=== PATIENT | female | born 2000 | race Caucasian/White ===

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

== ENCOUNTER 2020-04-21 10:48 | Emergency (ER) | payer BC ==
--- OUTSIDE RECORDS SUMMARY | 2020-04-21 10:50 | XMS REPORT | Continuity of Care Document ---
:2000 Author Organization [facility] t Address [address] [place] [address] Dr. Hutchins. [address] [place] [id number] Care Team Providers Name Role Phone Fredo Camacho MD Attending Clinician Problems This patient has no known problems. Allergies, Adverse Reactions, Alerts This patient has no known allergies or adverse reactions. Medications This patient has no known medications. Procedures This patient has no known procedures. Encounters Start End Encounter Admission Attending Care Care Encounter Source Date/Time Date/Time Type Type Clinicians Facility Department ID 2019-05-27 2019-05-27 Office CAROLIN Camacho [id number] 11:00:00 11:15:00 Visit [facility] [id number] Fredo Carrero [id number] [place] [id number] nal 044 Office [address] One Results This patient has no known results.
[2020-04-21] MEDS ORDERED: ACETAMINOPHEN 500 MG TAB ONE (11:18)
--- NOTE | 2020-04-21 12:17 | RAD REPORT ---
EXAM DESCRIPTION: RAD - Foot Left 3 View - 04/21/2020 11:25 am CLINICAL HISTORY: PAIN COMPARISON: <Comparisons> FINDINGS: No fracture, dislocation or periosteal reaction. No acute or destructive bony process. No air or foreign body in the soft tissues. Distal fibula findings are separately detailed. IMPRESSION: Negative left foot examination.
--- NOTE | 2020-04-21 12:19 | RAD REPORT ---
EXAM DESCRIPTION: RAD - Ankle Left 3 View - 04/21/2020 11:24 am CLINICAL HISTORY: PAIN COMPARISON: None FINDINGS: Oblique fracture is present through the distal fibula. No angulation deformity and no sign ificant distraction. Tibia is intact. Ankle mortise is normal. No joint effusion seen. No joint space narrowing. Significant lateral soft tissue swelling is present. IMPRESSION: Nondisplaced distal fibula fracture with lateral soft tissue swelling.
--- NOTE | 2020-04-21 12:28 | EDPHYS ---
Physician Documentation [facility] Name: Jhon Ackerman Age: 20 yrs Sex: Female : 2000 Arrival Date: 04/21/2020 Time: 10:50 Bed 18 Private MD: Fernie Camacho ED Physician Nathan Farnsworth HPI: 04/21 11:03 This 20 yrs old Female presents to ER via Wheelchair with complaints of Ankle jmm Injury, Ankle Pain. 11:03 The patient presents with an injury, pain. Onset: The symptoms/episode began/occurred jmm acutely, just prior to arrival. Associated signs and symptoms: Pertinent positives: swelling. Modifying factors: The symptoms are alleviated by nothing, the symptoms are aggravated by weight bearing, movement. The patient has not experienced similar symptoms in the past. This is a 20 year old female with a history of anxiety, depression that presents to the ED with complaints of left ankle swelling which occurred as she slipped off the side of a truck. Patient states she was leaning against a truck and slipped. Denies neck pain. 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 - Social history:: Smoking status: Reported history of juuling and/or vaping. ROS: 11:03 Constitutional: Negative for fever, chills, and weight loss, Cardiovascular: Negative jmm for chest pain, palpitations, and edema, Respiratory: Negative for shortness of breath, cough, wheezing, and pleuritic chest pain. 11:03 MS/extremity: Positive for swelling. 11:03 All other systems are negative. Exam: 11:03 Constitutional: This is a well developed, well nourished patient who is awake, alert, jmm and in no acute distress. Head/Face: atraumatic. Eyes: EOMI, no conjunctival erythema appreciated ENT: Moist Mucus Membranes Neck: Trachea midline, Supple Chest/axilla: Normal chest wall appearance and motion. Cardiovascular: Regular rate and rhythm. No edema appreciated Respiratory: Normal respirations, no respiratory distress appreciated Abdomen/GI: Non distended, soft Back: Normal ROM Skin: General appearance color normal 11:03 Musculoskeletal/extremity: swelling noted to the left lateral ankle, compartments are soft, diffusely ttp, full dorsalis pulse, NVI. 11:03 Skin: Appearance: Color: normal in color. 11:03 Neuro: Orientation: is normal, Mentation: is normal, Memory: is normal. Vital Signs: 10:56 Weight 64.41 kg; Height 5 ft. 7 in. (170.18 cm); Pain 10/10; iw 10:58 BP 113 / 74; Pulse 97; Resp 16 S; Temp 97.8(TE); Pulse Ox 97% on R/A; jd3 12:01 BP 95 / 53; Pulse 92; Resp 16 S; Pulse Ox 97% on R/A; jd3 10:56 Body Mass Index 22.24 (64.41 kg, 170.18 cm) iw MDM: 11:00 Patient medically screened. [facility] 12:26 Data reviewed: vital signs, nurses notes. Counseling: I had a detailed discussion with [facility] the patient and/or guardian regarding: the historical points, exam findings, and any diagnostic results supporting the discharge/admit diagnosis, radiology results, the need for outpatient follow up. ED course: I discussed with the patient the need to F/U with ortho for further evaluation. Patient is otherwise given compartment syndrome return precautions. Patient understood and agrees with the plan of care. . 04/21 11:00 Order name: Ankle Left 3 View XRAY; Complete Time: 12:20 [facility] 04/21 11:00 Order name: Foot Left 3 View XRAY; Complete Time: 12:20 [facility] 04/21 11:24 Order name: Misc. Order: Left Ortho Boot; Complete Time: 11:42 [facility] Administered Medications: 11:04 Drug: Tylenol 1000 mg Route: PO; d3 11:42 Follow up: Response: No adverse reaction [facility] Disposition: 13:37 Co-signature as Attending Physician, Nathan Farnsworth MD. rn Disposition: 04/21/20 12:28 Discharged to Home. Impression: Fracture of lower leg, including ankle. - Condition is Stable. - Discharge Instructions: Ankle Fracture. - Medication Reconciliation Form, Thank You Letter, Antibiotic Education, Prescription Opioid Use, Work release form form. - Follow up: Neal Austin MD; When: 2 - 3 days; Reason: Recheck today's complaints, Continuance of care, Re-evaluation by your physician. Signatures: Dispatcher [employer] Redd Putnam PA PA jmm Williams, Irene, RN RN iw Nieto, Roman, MD MD rn Davies, Jonathon, RN RN jd3 Corrections: (The following items were deleted from the chart) 12:43 12:28 04/21/2020 12:28 Discharged to Home. Impression: Fracture of lower leg, including jd3 ankle. Condition is Stable. Forms are Medication Reconciliation Form, Thank You Letter, Antibiotic Education, Prescription Opioid Use. Follow up: Neal Austin; When: 2 - 3 days; Reason: Recheck today's complaints, Continuance of care, Re-evaluation by your physician. [facility]
--- NOTE | 2020-04-21 12:28 | ER ---
Nurse's Notes [facility] Name: Jhon Ackerman Age: 20 yrs Sex: Female : 2000 Arrival Date: 04/21/2020 Time: 10:50 Bed 18 Private MD: Fernie Camacho Diagnosis: Fracture of lower leg, including ankle Presentation: 04/21 10:56 Chief complaint: Patient states: was drinking last night, somehow injured her left iw ankle, woke up and it was swollen and very painful, 12/23. Coronavirus screen: At this time, the client does not indicate any symptoms associated with coronavirus-19. Ebola Screen: Patient negative for fever greater than or equal to 101.5 degrees Fahrenheit, and additional compatible Ebola Virus Disease symptoms Patient denies exposure to infectious person. Patient denies travel to an Ebola-affected area in the 21 days before illness onset. No symptoms or risks identified at this time. Initial Sepsis Screen: Does the patient meet any 2 criteria? No. Patient's initial sepsis screen is negative. Does the patient have a suspected source of infection? No. Patient's initial sepsis screen is negative. Risk Assessment: Do you want to hurt yourself or someone else? Patient reports no desire to harm self or others. Onset of symptoms was April 20, 2020. 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 - Social history:: Smoking status: Reported history of juuling and/or vaping. Screenin:58 Abuse screen: Denies threats or abuse. Nutritional screening: No deficits noted. jd3 Tuberculosis screening: No symptoms or risk factors identified. Fall Risk Ambulatory Aid- None/Bed Rest/Nurse Assist (0 pts). Gait- Normal/Bed Rest/Wheelchair (0 pts) Mental Status- Oriented to own ability (0 pts). Total Camilo Fall Scale indicates No Risk (0-24 pts). Assessment: 10:57 General: Appears in no apparent distress. uncomfortable, Behavior is calm, cooperative, jd3 appropriate for age. Pain: Complains of pain in left ankle Quality of pain is described as aching, tender. Neuro: Level of Consciousness is awake, alert, obeys commands, Oriented to person, place, time, situation. Cardiovascular: Capillary refill < 3 seconds Patient's skin is warm and dry. Respiratory: Airway is patent Respiratory effort is even, unlabored, Respiratory pattern is regular, symmetrical, Denies cough, shortness of breath. GI: No signs and/or symptoms were reported involving the gastrointestinal system. : No signs and/or symptoms were reported regarding the genitourinary system. EENT: No signs and/or symptoms were reported regarding the EENT system. Derm: Skin is intact, Skin is dry, Skin is normal, Skin temperature is warm. Musculoskeletal: Circulation, motion, and sensation intact. Range of motion: limited in left ankle Swelling present in left ankle. 12:01 Reassessment: Patient appears in no apparent distress at this time. Patient and/or jd3 family updated on plan of care and expected duration. Pain level reassessed. Patient is alert, oriented x 3, equal unlabored respirations, skin warm/dry/pink. 12:42 Reassessment: Patient appears in no apparent distress at this time. Patient and/or jd3 family updated on plan of care and expected duration. Pain level reassessed. Patient is alert, oriented x 3, equal unlabored respirations, skin warm/dry/pink. pt reported understanding of discharge instructions, assisted pt to front of ER. insisting on waiting outside, proper crutch walking demonstrated. Vital Signs: 10:56 Weight 64.41 kg; Height 5 ft. 7 in. (170.18 cm); Pain 10/10; iw 10:58 BP 113 / 74; Pulse 97; Resp 16 S; Temp 97.8(TE); Pulse Ox 97% on R/A; jd3 12:01 BP 95 / 53; Pulse 92; Resp 16 S; Pulse Ox 97% on R/A; jd3 10:56 Body Mass Index 22.24 (64.41 kg, 170.18 cm) iw ED Course: 10:50 Patient arrived in ED. ag5 10:50 Fernie Camacho MD is Private Physician. ag5 10:52 Kranthi Mary, RN is Primary Nurse. jd3 10:53 Redd Kearney PA is PHCP. jmm 10:53 Nathan Farnsworth MD is Attending Physician. [facility] 10:57 Triage completed. iw 10:58 Arm band placed on. iw 10:59 Patient has correct armband on for positive identification. Bed in low position. Call j light in reach. Side rails up X 1. Pulse ox on. NIBP on. 10:59 Ice pack to injury. jd3 11:25 Ankle Left 3 View XRAY In Process Unspecified. EDMS 11:25 Foot Left 3 View XRAY In Process Unspecified. EDMS 11:42 ortho boot to left foot. jd3 12:27 Neal Austin MD is Referral Physician. [facility] 12:41 No provider procedures requiring assistance completed. Patient did not have IV access jd3 during this emergency room visit. Administered Medications: 11:04 Drug: Tylenol 1000 mg Route: PO; jd3 11:42 Follow up: Response: No adverse reaction jd3 Outcome: 12:28 Discharge ordered by MD. jmm 12:43 Discharged to home ambulatory, with family. jd3 12:43 Condition: stable 12:43 Discharge instructions given to patient, Instructed on discharge instructions, follow up and referral plans. Demonstrated understanding of instructions, follow-up care. 12:43 Patient left the ED. jd3 Signatures: Dispatcher [employer] EDMS Redd Kearney PA PA jmm Williams, Irene, RN RN iw Kranthi Mary RN RN jMonisha Curtis ag5
[2020-04-21 13:05] VITALS: TEMP 97.8; O2SAT 97
[2020-04-21 13:07] VITALS: BP 95/53
== END 2020-04-21 12:43 | disposition home or self-care (01) ==
LOC: ER 10:48
PROC: 2W3MX1Z Immobilization of Left Lower Extremity using Splint (ICD-10-PCS; principal; 2020-04-21)
DX: S82.832A Other fracture of upper and lower end of left fibula, initial encounter for closed fracture (principal); W01.0XXA Fall on same level from slipping, tripping and stumbling without subsequent striking against object, initial encounter; Y93.89 Activity, other specified; Y92.9 Unspecified place or not applicable; Z88.5 Allergy status to narcotic agent
CPT/HCPCS: 99284

== ENCOUNTER 2022-05-12 14:59 | Emergency (ER) | payer BC ==
--- OUTSIDE RECORDS SUMMARY | 2022-05-12 15:54 | XMS REPORT | Continuity of Care Document ---
:2000 Author Organization [facility] Address [address] [place] [address] [place] [id number] Care Team Providers Name Role Phone Doctor Unassigned, [place] Attending Clinician Unavailable JAYLEEN MUJICA Attending Clinician Unavailable CONSTANCE RETANA Attending Clinician Unavailable Liza DUNLAP, [place] Yoo Attending Clinician SHIN DE JESUS Attending Clinician Unavailable Payers Payer Name Policy Type Policy Number Effective Date Expiration Date S ource Problems Condition Condition Condition Status Onset Resolution Last Treating Co mments Source Name Details Category Date Date Treatment Clinician Date No known No known Disease Unive rs active active ity of problems problems [facility] Allergies, Adverse Reactions, Alerts Allergy Allergy Status Severity Reaction(s) Onset Inactive Treating Comm ents Source Name Type Date Date Clinician Morphine Propensi Active Shortness of 2017-03 Univers ty to Breath 1-14 ity of adverse 00:00: [place] reaction [address] [place] [address] MORPHINE DRUG Active SOB 2017-03 Univers INGREDI 1-14 ity of 00:00: [address] Social History Social Habit Start Date Stop Date Quantity Comments [facility] Alcohol intake 2019-06-22 2019-06-22 Current [facility] 00:00:00 00:00:00 non-drinker of [facility] alcohol [place] (finding) Tobacco use and 2019-06-22 2019-06-22 Never used [facility] y of exposure 00:00:00 00:00:00 [facility] Smoking Status Start Date Stop Date Source Never smoker [facility] Medications Ordered Filled Start Stop Current Ordering Indication Dosage Frequency Signature Comments Components Source Medication Medication Date Date Medication? Clinician (SIG) Name Name medroxyPROG Yes 150mg 150 mg by [facility] ESTERone 3-13 Intramuscu ity o f 150 mg/mL 16:17: lar route Adriano as syringe 51 every 3 Medical (three) Branch months. medroxyPROG 2020-0 Yes 150mg 150 mg by Univers ESTERone 3-13 Intramuscu ity o f 150 mg/mL 16:17: lar route Adriano as syringe 51 every 3 Medical (three) Branch months. medroxyPROG 2020-0 Yes 150mg 150 mg by Univers ESTERone 3-13 Intramuscu ity o f 150 mg/mL 16:17: lar route Adriano as syringe 51 every 3 Medical (three) Branch months. escitalopra 0 Yes [id number] 5mg Take 1 Univers m oxalate 5 3-13 tablet by ity of mg tablet 00:00: mouth [place] 00 daily. Medical Branch escitalopra Yes [id number] 5mg Take 1 Univers m oxalate 5 3-13 tablet by ity of mg tablet 00:00: mouth [place] 00 daily. Medical Branch escitalopra Yes [id number] 5mg Take 1 Univers m oxalate 5 3-13 tablet by ity of mg tablet 00:00: mouth [place] 00 daily. Medical Branch ESCITALOPRA Yes [id number] 10mg TAKE 1 Univers M OXALATE 2-28 TABLET BY ity o f 10 mg 00:00: MOUTH [place] tablet 00 DAILY Medical Branch ESCITALOPRA 0 Yes [id number] 10mg TAKE 1 Univers M OXALATE 2-28 TABLET BY ity o f 10 mg 00:00: MOUTH [place] tablet 00 DAILY Medical Branch ESCITALOPRA 0 Yes [id number] 10mg TAKE 1 Univers M OXALATE 2-28 TABLET BY ity o f 10 mg 00:00: MOUTH [place] tablet 00 DAILY Medical Branch ESCITALOPRA 2019-0 2020- No [id number] 10mg TAKE 1 Univers M OXALATE 2-28 03-13 TABLET BY ity of 10 mg 00:00: 00:00 MOUTH [place] tablet 00 :00 DAILY Medical Branch ESCITALOPRA 0 2020- No [id number] 10mg TAKE 1 Univers M OXALATE 2-28 03-13 TABLET BY ity of 10 mg 00:00: 00:00 MOUTH [place] tablet 00 :00 DAILY Medical Branch Nitrofurant Yes [id number] 100mg Take 1 Univers oin&Nit. 7-26 capsule by ity o f [place] 00:[place]: mouth [place] 100 mg 00 (two) Medical capsule times Branch daily. Nitrofurant Yes [id number] 100mg Take 1 Univers oin&Nit. 7-26 capsule by ity o f [place] 00:[place]: mouth [place] 100 mg 00 (two) Medical capsule times Branch daily. Nitrofurant Yes [id number] 100mg Take 1 Univers oin&Nit. 7-26 capsule by ity o f [place] 00:[place]: mouth [place] 100 mg 00 (two) Medical capsule times Branch daily. Nitrofurant Yes [id number] 100mg Take 1 Univers oin&Nit. 7-26 capsule by ity o f [place] 00:[place]: [place] 100 mg 00 (two) Medical capsule times Branch daily. Nitrofurant Yes [id number] 100mg Take 1 Univers oin&Nit. 7-26 capsule by ity o f [place] 00:[place]: mouth [place] 100 mg 00 (two) Medical capsule times Branch daily. Nitrofurant Yes [id number] 100mg Take 1 Univers oin&Nit. 7-26 capsule by ity o f [place] 00:00: mouth [place] 100 mg 00 (two) Medical capsule times Branch daily. Nitrofurant Yes [id number] 100mg Take 1 Univers oin&Nit. 7-26 capsule by ity o f [place] 00:[place]: mouth [place] 100 mg 00 (two) Medical capsule times Branch daily. Nitrofurant 2020- No [id number] 100mg Take 1 Univers oin&Nit. 7-26 03-13 capsule by ity of [place] 00:00: 00:00 mouth 2 [place] as 100 mg 00 :00 (two) Medical capsule times Branch daily. Nitrofurant 2020- No [id number] 100mg Take 1 Univers oin&Nit. 7-26 03-13 capsule by ity of [place] 00:00: 00:00 mouth 2 [place] as 100 mg 00 :00 (two) Medical capsule times Branch daily. cephALEXin 2018- Yes [id number] 500mg Take 1 Univers 500 mg 7-24 capsule by ity of capsule 00:00: mouth 2 [place] 00 (two) Medical times Branch daily. cephALEXin 2018-0 Yes [id number] 500mg Take 1 Univers 500 mg 7-24 capsule by ity of capsule 00:00: mouth 2 [place] 00 (two) Medical times Branch daily. cephALEXin 2019-0 Yes [id number] 500mg Take 1 Univers 500 mg 7-24 capsule by ity of capsule 00:00: mouth 2 [place] 00 (two) Medical times Branch daily. cephALEXin 2019-0 Yes [id number] 500mg Take 1 Univers 500 mg 7-24 capsule by ity of capsule 00:00: mouth 2 [place] 00 (two) Medical times Branch daily. cephALEXin 2019- Yes [id number] 500mg Take 1 Univers 500 mg 7-24 capsule by ity of capsule 00:00: mouth 2 [place] 00 (two) Medical times Branch daily. cephALEXin 2019-0 Yes [id number] 500mg Take 1 Univers 500 mg 7-24 capsule by ity of capsule 00:00: mouth 2 [place] 00 (two) Medical times Branch daily. cephALEXin 2018- Yes [id number] 500mg Take 1 Univers 500 mg 7-24 capsule by ity of capsule 00:00: mouth 2 [place] 00 (two) Medical times Branch daily. cephALEXin 2020- No [id number] 500mg Take 1 Univers 500 mg 7-24 03-13 capsule by ity of capsule 00:00: 00:00 mouth 2 [place] 00 :00 (two) Medical times Branch daily. cephALEXin 2018-0 2020- No [id number] 500mg Take 1 Univers 500 mg 7-24 03-13 capsule by ity of capsule 00:00: 00:00 mouth 2 [place] 00 :00 (two) Medical times Branch daily. escitalopra Yes [id number] 10mg Take 1 Univers m oxalate 2-06 tablet by ity o f 10 mg 00:00: mouth [place] tablet 00 daily. Medical Branch escitalopra Yes [id number] 10mg Take 1 Univers m oxalate 2-06 tablet by ity o f 10 mg 00:00: mouth [place] tablet 00 daily. Medical Branch escitalopra Yes [id number] 10mg Take 1 Univers m oxalate 2-06 tablet by ity o f 10 mg 00:00: mouth [place] tablet 00 daily. Medical Branch escitalopra Yes [id number] 10mg Take 1 Univers m oxalate 2-06 tablet by ity o f 10 mg 00:00: mouth [place] tablet 00 daily. [facility] escitalopra 2020- No [id number] 10mg Take 1 Univers m oxalate 04-21 tablet by ity of 10 mg 00:00: 00:00 mouth [place] tablet 00 :00 daily. [facility] Immunizations Ordered Filled Immunization Date Status Comments [facility] e Immunization Name Name Td 2018-07-31 Completed University of 00:00:00 [facility] Tdap 2018-07-31 Completed University of 00:00:00 [facility] Tdap 2018-07-31 Completed University of 00:00:00 [facility] Tdap 2018-07-31 Completed University of 00:00:00 [facility] Tdap 2018-07-31 Completed University of 00:00:00 [facility] Tdap 2018-07-31 Completed University of 00:00:00 [facility] Tdap 2018-07-31 Completed University of 00:00:00 [facility] Tdap 2018-07-31 Completed University of 00:00:00 [facility] Tdap 2018-07-31 Completed University of 00:00:00 [facility] TDAP 2018-07-31 Completed University of 00:00:00 [facility] Influenza Virus 2016-12-15 Completed Universit y of Vaccine Quad IM 3+ 00:00:[address] [facility] Influenza Virus 2016-12-15 Completed Universit y of Vaccine [place] IM 3+ 00:00:[address] [facility] Influenza Virus 2016-12-15 Completed Universit y of Vaccine Quad IM 3+ 00:00:[address] [facility] Influenza Virus 2016-12-15 Completed Universit y of Vaccine Quad IM 3+ 00:00:[address] [facility] Influenza Virus 2016-12-15 Completed Universit y of Vaccine Quad IM 3+ 00:00:[address] [facility] Influenza Virus 2016-12-15 Completed Universit y of Vaccine Quad IM 3+ 00:00:[address] [facility] Influenza Virus 2016-12-15 Completed Universit y of Vaccine Quad IM 3+ 00:00:[address] [facility] Influenza Virus 2016-12-15 Completed Universit y of Vaccine Quad IM 3+ 00:00:[address] [facility] Influenza Virus 2016-12-15 Completed Universit y of Vaccine Quad IM 3+ 00:00:[address] [facility] Influenza Virus 2016-12-15 Completed Universit y of Vaccine Quad IM 3+ 00:00:00 [facility] Branch Vital Signs Vital Name Observation Time Observation Value Comments Source Systolic blood 2019-05-27 16:08:00 110 mm[Hg] Univer sity of pressure [place] [facility] Diastolic blood 2019-05-27 16:08:00 76 mm[Hg] Unive rsity of pressure [place] [facility] Heart rate 2019-05-27 16:08:00 87 /min Universi ty of [place] [facility] Body temperature 2019-05-27 16:08:00 36.56 Joy Univ ersity of [place] [facility] Body weight 2019-05-27 16:08:00 65.862 kg Universi ty of [place] [facility] Oxygen saturation in 2019-05-27 16:08:00 98 /min University of Arterial blood by [facility] Pulse oximetry Branch Systolic blood 2019-05-27 16:08:00 110 mm[Hg] Univer sity of pressure [place] [facility] [place] Diastolic blood 2019-05-27 16:08:00 76 mm[Hg] Unive rsity of pressure [facility] Heart rate 2019-05-27 16:08:00 87 /min Universi ty of [place] [facility] Body temperature 2019-05-27 16:08:00 36.56 Joy Univ ersity of [place] [facility] Body weight 2019-05-27 16:08:00 65.862 kg Universi ty of [place] [facility] Oxygen saturation in 2019-05-27 16:08:00 98 /min University of Arterial blood by [facility] Pulse oximetry Branch Procedures Procedure Date / Time Performed Performing Clinician [facility] e EXTERNAL PROVIDER 2020-04-25 06:01:00 Doctor Unassigned, No Univ ersity of [place] RECORDS Name Medical Branch ASSIGNMENT OF BENEFITS 2019-05-27 16:00:48 Doctor Unassigned, No University [facility] Name Medical Branch EXTERNAL PROVIDER 2019-05-18 06:01:00 Doctor Unassigned, No Univ ersity of [place] RECORDS Name Medical Branch EXTERNAL PROVIDER 2018-12-03 05:01:00 Doctor Unassigned, No Univ ersity of [place] RECORDS Name Medical Branch Encounters Start End Encounter Admission Attending Care Care Encounter Source Date/Time Date/Time Type Type Clinicians Facility Department ID 2020-04-25 2020-04-25 Katarzyna MAC [id number] Univers 00:00:00 00:00:00 Only Unassigned, FINESSE [id number] ity of [place] [facility] [id number] Adriano as [phone] [address] 2020-04-24 2020-04-24 Outpatient R SIL [facility] [id number] Univers 13:00:00 13:00:00 JAYLEEN harry [facility] 2019-06-22 2019-06-22 Outpatient R MAZIN [facility] [id number] Univers 19:40:00 19:40:00 CONSTANCE harry [facility] 2019-05-27 2019-05-27 Office [facility] [id number] 11:00:00 11:15:00 Visit [facility] [id number] Edashley Mcgrath [id number] Professio [phone] [place] [address] Office [facility] 2019-05-27 2019-05-27 [facility] [id number] Univers 11:00:00 11:15:00 Visit [facility] [id number] it y of [place] [id number] Adriano as Professio [phone] Al dical [address] Office [facility] 2019-05-27 2019-05-27 Outpatient R LIZA [facility] [id number] Univers 11:00:00 11:00:00 SHIN aliceajayne [facility] 2019-05-27 2019-05-27 Orders Doctor MAC [id number] Univers 00:00:00 00:00:00 Only Unassigned, FINESSE [id number] ity of [place] [facility] [id number] Adriano as [phone] [address] 2019-05-18 2019-05-18 Orders Doctor ESTEFANIA [id number] Univers 00:00:00 00:00:00 Only Unassigned, FINESSE [id number] ity of [place] [facility] [id number] Adriano as [phone] [address] 2019-05-13 2019-05-13 [facility] [id number] Univers 13:15:00 13:15:00 SHIN ity of [facility] 2019-05-11 2019-05-11 [facility] [id number] Univers 00:00:00 00:00:00 [facility] [id number] it y of [place] [id number] Adriano as Professio [phone] [address] Office [facility] 2018-12-03 2018-12-03 Orders Doctor ESTEFANIA [id number] Univers 00:00:00 00:00:00 Only Unassigned, FINESSE [id number] ity of [place] [facility] [id number] Adriano as [phone] [address] 2018-11-01 2018-11-01 Telephone [facility] [id number] [facility] 00:00:00 00:00:00 [facility] [id number] it y of [place] [id number] Adriano as Professio [phone] Al dic[address] Office [facility] One 2018-10-08 2018-10-08 Telephone [facility] [id number] [facility] 00:00:00 00:00:00 [facility] [id number] it y of [place] [id number] Adriano as Professio [phone] [address] Office [facility] One Results This patient has no known results.
[2022-05-12 16:20] LABS: Absolute Lymphocytes (CBC) 1.7 K/uL (0.7-4.9); Hematocrit 41.9 % (36.0-45.0); Lymphocytes % 28.9 % (15.3-44.8); MCV 90.1 fL (80-100); MPV 9.5 fL (7.6-11.3); RBC Red Blood Cell Count 4.65 M/uL (3.86-4.86)
[2022-05-12 16:31] LABS: Magnesium 2.3 mg/dL (1.6-2.4); Potassium 3.4 mmol/L (3.5-5.1)
[2022-05-12 16:31] LABS: Urine Blood Negative (Negative); Urine Glucose Negative (Negative); Urine Protein Negative (Negative)
[2022-05-12] MEDS ORDERED: ACETAMINOPHEN 325 MG TABLET ONE (16:31)
--- NOTE | 2022-05-12 18:44 | EKG ---
Test Date: 2022-05-12 Test Time: 16:14:45 Windshield Repair Technician: EUSEBIO MEASUREMENT RESULTS: Intervals: Rate: 73 NC: 138 QRSD: 80 QT: 374 QTc: 412 [place]: P: 81 NC: 138 QRS: 78 T: 66 INTERPRETIVE STATEMENTS: Normal sinus rhythm with sinus arrhythmia Normal ECG Compared to ECG 03/23/2018 01:13:59 No significant changes Electronically Signed On 05-12-22 18:40:32 [employer]AREPOINT WEB DEVELOPER by Paul Medellin
--- NOTE | 2022-05-12 19:06 | RAD REPORT ---
EXAM DESCRIPTION: CT - Head Brain Wo Cont - 05/12/2022 6:54 pm CLINICAL HISTORY: Headache COMPARISON: Head Brain Wo Cont dated 11/21/2018; Head Brain Wo Cont dated 03/23/2018 TECHNIQUE: Noncontrast head CT images ad were obtained without IV contrast. Multiplanar reformats we re generated and reviewed. All CT scans are performed using dose optimization technique as appropriate and may include automated exposure control or mA/KV adjustment according to patient size. FINDINGS: No intracranial hemorrhage, mass, or edema. Midline structures are unremarkable. Normal ventricular caliber for age. Sparks-white matter differentiation is preserved, without evidence of acute infarct. No abnormal extra- axial fluid collections. Mastoid air cells and visualized portions of the paranasal sinuses are clear. No acute bony findings. IMPRESSION: No evidence of an acute intracranial process.
--- NOTE | 2022-05-12 19:34 | ER ---
Nurse's Notes [facility] Name: Jhon Ackerman Age: 22 yrs Sex: Female : 2000 Arrival Date: 05/12/2022 Time: 15:04 Bed 24 Private MD: Diagnosis: Headache;Other visual disturbances-blurry Presentation: 05/12 15:28 Chief complaint: Patient states: I was at work 45 minutes ago - I started feeling like ld1 my vision became blurry in my left eye \\T\\ I have a headache. Pt states "I think it may be my anxiety, but I am not sure.". Coronavirus screen: At this time, the client does not indicate any symptoms associated with coronavirus-19. Ebola Screen: No symptoms or risks identified at this time. Initial Sepsis Screen: Does the patient meet any 2 criteria? No. Patient's initial sepsis screen is negative. Does the patient have a suspected source of infection? No. Patient's initial sepsis screen is negative. Risk Assessment: Do you want to hurt yourself or someone else? Patient reports no desire to harm self or others. Onset of symptoms was May 12, 2022. 15:28 Method Of Arrival: Ambulatory ld1 15:28 Acuity: HAIR 3 ld1 Triage Assessment: 15:30 General: Appears in no apparent distress. comfortable, Behavior is calm, cooperative, ld1 appropriate for age. Pain: Complains of pain in face Pain does not radiate. Pain currently is 3 out of 10 on a pain scale. Quality of pain is described as throbbing, Pain began suddenly. EENT: No signs and/or symptoms were reported regarding the EENT system. Neuro: Level of Consciousness is awake, alert, obeys commands, Oriented to person, place, time, situation. Cardiovascular: Capillary refill < 3 seconds Patient's skin is warm and dry. Respiratory: Airway is patent Respiratory effort is even, unlabored. GI: Abdomen is flat, non-distended. : No signs and/or symptoms were reported regarding the genitourinary system. Derm: No signs and/or symptoms reported regarding the dermatologic system. Musculoskeletal: No signs and/or symptoms reported regarding the musculoskeletal system. 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 - Social history:: Smoking status: Patient denies any tobacco usage or history of. Patient/guardian denies using alcohol. Screenin:27 [facility] ED Fall Risk Assessment (Adult) History of falling in the last 3 months, mb9 including since admission No falls in past 3 months (0 pts) Confusion or Disorientation No (0 pts) Intoxicated or Sedated No (0 pts) Impaired Gait No (0 pts) Mobility Assist Device Used No (0 pt) Altered Elimination No (0 pt) Score/Fall Risk Level 0 - 2 = Low Risk Oriented to surroundings, Maintained a safe environment, Educated pt \\T\\ family on fall prevention, incl call for assistance when getting out of bed. Abuse screen: Denies threats or abuse. Nutritional screening: No deficits noted. Tuberculosis screening: No symptoms or risk factors identified. Assessment: 16:01 General: Appears in no apparent distress. Behavior is cooperative. Pain: Complains of mb9 pain in left eye Pain radiates to face Pain currently is 3 out of 10 on a pain scale. Quality of pain is described as throbbing, Pain began suddenly, Is intermittent. Neuro: Delgado Agitation-Sedation Scale (RASS): 0 - Alert and Calm Level of Consciousness is awake, alert, obeys commands, Oriented to person, place, time, situation, Appropriate for age Facial symmetry appears normal, Pupils are PERRLA, Reports blurred vision headache in left. Cardiovascular: Patient's skin is warm and dry. Respiratory: Airway is patent Respiratory effort is even, unlabored, Respiratory pattern is regular, symmetrical. GI: No signs and/or symptoms were reported involving the gastrointestinal system. Derm: Skin is pink, warm \\T\\ dry. Musculoskeletal: Range of motion: intact in all extremities. 16:57 Reassessment: Patient and/or family updated on plan of care and expected duration. Pain mb9 level reassessed. Patient states feeling better. Patient states symptoms have improved. 18:58 Reassessment: No changes from previously documented assessment. Patient and/or family mb9 updated on plan of care and expected duration. Pain level reassessed. Patient is alert, oriented x 3, equal unlabored respirations, skin warm/dry/pink. Patient states feeling better. Patient states symptoms have improved. 19:42 Reassessment: No changes from previously documented assessment. Patient and/or family mb9 updated on plan of care and expected duration. Pain level reassessed. Patient is alert, oriented x 3, equal unlabored respirations, skin warm/dry/pink. Patient denies pain at this time. Patient states feeling better. Patient states symptoms have improved. Vital Signs: 15:28 BP 130 / 75; Pulse 74; Resp 18; Temp 97.8(O); Pulse Ox 100% on R/A; Weight 67.13 kg; ld1 Height 5 ft. 7 in. (170.18 cm); Pain 3/10; 16:57 BP 114 / 68; Pulse 68; Resp 16; Pulse Ox 100% ; mb9 18:58 BP 102 / 57; Pulse 68; Resp 18; Pulse Ox 100% ; mb9 15:28 Body Mass Index 23.18 (67.13 kg, 170.18 cm) ld1 Visual Acuity: 16:56 Left Eye Visual acuity 20/30, Pupil size 3 mm, Normal; Right Eye Visual acuity 20/30, mb9 Pupil size 3 mm, Normal; Both Eyes Visual acuity 20/30; Without Lenses; ED Course: 15:04 Patient arrived in ED. am2 15:09 Arnol Cee PA is PHCP. cp 15:09 Leandro Del Real DO is Attending Physician. cp 15:23 Sherrill Asher, JESSE is Primary Nurse. mb9 15:23 Arm band placed on. mb9 15:27 Placed in gown. Bed in low position. Call light in reach. Side rails up X 1. Client mb9 placed on continuous cardiac and pulse oximetry monitoring. NIBP monitoring applied. document manager on. 15:30 Triage completed. ld1 18:56 CT Head Brain wo Cont In Process Unspecified. EDMS 19:42 Patient did not have IV access during this emergency room visit. mb9 Administered Medications: 15:52 Not Given (Patient Refused): Reglan (metoCLOPramide) 10 mg IVP once; over 1 to 2 minutesmb9 15:52 Not Given (Patient Refused): Benadryl (diphenhydrAMINE) 12.5 mg IVP once mb9 15:52 Not Given (Patient Refused): NS 0.9% 500 ml IV at 500 ml/hr continuous mb9 16:32 Drug: Tylenol 650 mg Route: PO; mb9 16:47 Follow up: Response: No adverse reaction mb9 19:38 Not Given (Patient Refused): Potassium Effervescent Tablet 50 mEq PO once; dissolve in mb9 4 ounces of water or juice Medication: 15:28 VIS not applicable for this client. mb9 Outcome: 19:33 Discharge ordered by . cp 19:42 Discharged to home ambulatory. mb9 19:42 Condition: stable 19:42 Discharge instructions given to patient, Instructed on discharge instructions, follow up and referral plans. Demonstrated understanding of instructions, follow-up care, medications, Prescriptions given X 1. 19:42 Patient left the ED. mb9 Signatures: Dispatcher [employer] EDMS Arnol Cee PA PA cp Moreno, Amanda amMer Garces RN RN ld1 Sherrill Asher RN RN mb9
--- NOTE | 2022-05-12 19:34 | EDPHYS ---
Physician Documentation [facility] Name: Jhon Ackerman Age: 22 yrs Sex: Female : 2000 Arrival Date: 05/12/2022 Time: 15:04 Bed 24 Private MD: ED Physician Leandro Del Real HPI: 05/12 15:40 This 22 yrs old Female presents to ER via Ambulatory with complaints of Anxiety, Vision cp Problem. 15:40 The patient complains of pain to the top of head and back of head. The patient cp describes the headache as aching, constant. Onset: The symptoms/episode began/occurred 45 minute(s) ago. 15:40 Associated signs and symptoms: Pertinent positives: left eye blurry vision, Pertinent cp negatives: fever, neck stiffness, paresthesias, vision loss, vomiting. Severity of symptoms: in the emergency department the pain a " 3" out of "10". Headache History: Denies prior headaches. 15:40 Patient reports she was feeling "anxious" and concerned symptoms are due to anxiety. 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 - Social history:: Smoking status: Patient denies any tobacco usage or history of. Patient/guardian denies using alcohol. ROS: 15:45 Constitutional: Negative for body aches, chills, fever, poor PO intake. cp 15:45 Eyes: Positive for left eye blurry vision, Negative for pain, redness. cp 15:45 ENT: Negative for drainage from ear(s), ear pain, sore throat, difficulty swallowing, difficulty handling secretions. 15:45 Cardiovascular: Negative for chest pain, edema, palpitations. 15:45 Respiratory: Negative for cough, shortness of breath, wheezing. 15:45 Abdomen/GI: Negative for abdominal pain, nausea, vomiting, and diarrhea. 15:45 Neuro: Positive for headache, tingling, Negative for altered mental status, numbness, weakness. 15:45 All other systems are negative. Exam: 15:50 Constitutional: The patient appears in no acute distress, alert, awake, cp non-diaphoretic, non-toxic, well developed, well nourished. 15:50 Head/Face: Normocephalic, atraumatic. cp 15:50 Eyes: Periorbital structures: appear normal, Pupils: equal, round, and reactive to light and accomodation, Extraocular movements: intact throughout, Conjunctiva: normal, no exudate, no injection, Sclera: no appreciated abnormality, Lids and lashes: appear normal, bilaterally. 15:50 ENT: External ear(s): are unremarkable, Ear canal(s): are normal, TM's: dullness, bilaterally, Nose: is normal, Mouth: Lips: moist, Oral mucosa: pink and intact, moist, Posterior pharynx: is normal, airway is patent, no erythema, no exudate. 15:50 Neck: ROM/movement: is normal, is supple, without pain, no range of motions limitations. 15:50 Chest/axilla: Inspection: normal. 15:50 Cardiovascular: Rate: normal, Rhythm: regular. 15:50 Respiratory: the patient does not display signs of respiratory distress, Respirations: normal, no use of accessory muscles, no retractions, labored breathing, is not present, Breath sounds: are clear throughout, no decreased breath sounds, no stridor, no wheezing. 15:50 Abdomen/GI: Inspection: abdomen appears normal, Palpation: abdomen is soft and non-tender, in all quadrants. 15:50 Back: pain, is absent, ROM is normal. 15:50 Neuro: Orientation: to person, place \\T\\ time. Mentation: is normal, Cerebellar function: is grossly normal, Motor: moves all fours, strength is normal, Sensation: is normal, Gait: is steady, at a normal pace, without difficulty. 16:18 ECG was reviewed by the Attending Physician. cp Vital Signs: 15:28 BP 130 / 75; Pulse 74; Resp 18; Temp 97.8(O); Pulse Ox 100% on R/A; Weight 67.13 kg; ld1 Height 5 ft. 7 in. (170.18 cm); Pain 3/10; 16:57 BP 114 / 68; Pulse 68; Resp 16; Pulse Ox 100% ; mb9 18:58 BP 102 / 57; Pulse 68; Resp 18; Pulse Ox 100% ; mb9 15:28 Body Mass Index 23.18 (67.13 kg, 170.18 cm) ld1 Visual Acuity: 16:56 Left Eye Visual acuity 20/30, Pupil size 3 mm, Normal; Right Eye Visual acuity 20/30, mb9 Pupil size 3 mm, Normal; Both Eyes Visual acuity 20/30; Without Lenses; MDM: 15:29 Patient medically screened. 19:30 Data reviewed: vital signs, nurses notes, lab test result(s), EKG, radiologic studies, cp CT scan. 19:30 I considered the following discharge prescriptions or medication management in the emergency department Medications were administered in the Emergency Department. See MAR. Test considered but Not performed: MRI: brain. Counseling: I had a detailed discussion with the patient and/or guardian regarding: the historical points, exam findings, and any diagnostic results supporting the discharge/admit diagnosis, lab results, radiology results, the need for outpatient follow up, a family practitioner, to return to the emergency department if symptoms worsen or persist or if there are any questions or concerns that arise at home. Response to treatment: the patient's symptoms have markedly improved after treatment, and as a result, I will discharge patient. 05/12 15:36 Order name: Basic Metabolic Panel; Complete Time: 17:15 05/12 17:15 Interpretation: Normal except: K 3.4; CL 109. 05/12 15:36 Order name: CBC with Diff; Complete Time: 17:15 05/12 17:15 Interpretation: Reviewed. 05/12 15:36 Order name: Magnesium; Complete Time: 17:15 05/12 16:31 Order name: Urine Dipstick-Ancillary; Complete Time: 17:15 EDMS 05/12 17:15 Interpretation: Normal except: UESTR Trace. 05/12 16:32 Order name: Urine --Ancillary (enter results) 05/12 16:47 Order name: Urine --Ancillary; Complete Time: 17:15 EDMS 05/12 15:36 Order name: EKG; Complete Time: 15:37 05/12 15:36 Order name: Cardiac monitoring; Complete Time: 15:39 05/12 16:26 Order name: CT Head Brain wo Cont; Complete Time: 19:26 cp 05/12 19:26 Interpretation: Report reviewed. 05/12 15:36 Order name: EKG - Nurse/Tech; Complete Time: 16:32 cp 05/12 15:36 Order name: Labs collected and sent; Complete Time: 16:32 cp 05/12 15:36 Order name: O2 Per Protocol; Complete Time: 15:39 cp 05/12 15:36 Order name: O2 Sat Monitoring; Complete Time: 15:39 cp 05/12 15:36 Order name: Visual Acuity; Complete Time: 16:56 cp 05/12 15:36 Order name: Urine Dipstick-Ancillary (obtain specimen); Complete Time: 16:32 cp 05/12 15:36 Order name: Urine Test (obtain specimen); Complete Time: 16:32 cp EC:18 Rate is 73 beats/min. Rhythm is regular. AR interval is normal. QRS interval is normal. cp QT interval is normal. T waves are Inverted in lead aVR. T waves are Flattened in lead aVL. Interpreted by me. Reviewed by me. Administered Medications: 15:52 Not Given (Patient Refused): Reglan (metoCLOPramide) 10 mg IVP once; over 1 to 2 minutesmb9 15:52 Not Given (Patient Refused): Benadryl (diphenhydrAMINE) 12.5 mg IVP once mb9 15:52 Not Given (Patient Refused): NS 0.9% 500 ml IV at 500 ml/hr continuous mb9 16:32 Drug: Tylenol 650 mg Route: PO; mb9 16:47 Follow up: Response: No adverse reaction mb9 19:38 Not Given (Patient Refused): Potassium Effervescent Tablet 50 mEq PO once; dissolve in mb9 4 ounces of water or juice Disposition: 16:25 Co-signature as Attending Physician, Leandro BLANC was immediately available on-site ms3 in the Emergency Department for consultation in the care of the patient. Disposition Summary: 05/12/22 19:33 Discharge Ordered Location: Home cp Problem: new cp Symptoms: have improved cp Condition: Stable cp Diagnosis - Headache cp - Other visual disturbances - blurry cp Followup: cp - With: Private Physician - When: 2 - 3 days - Reason: Recheck today's complaints Discharge Instructions: - Discharge Summary Sheet cp - Blurred Vision, Adult cp - General Headache Without Cause cp Forms: - Medication Reconciliation Form cp - Thank You Letter cp - Antibiotic Education cp - Prescription Opioid Use cp Prescriptions: - Ibuprofen 800 mg Oral Tablet - take 1 tablet by ORAL route every 8 hours As needed take with food; 30 tablet; cp Refills: 0, Product Selection Permitted Signatures: Dispatcher [employer] EDMS Arnol Cee PA PA cp Sims, Marcus, DO DO ms3 Mer Perla RN RN ld1 Sherrill Asher RN RN mb9 Corrections: (The following items were deleted from the chart) 15:52 15:36 IV Saline Lock ordered. cp mb9
[2022-05-12 20:02] VITALS: TEMP 97.8; O2SAT 100
[2022-05-12 20:14] VITALS: BP 102/57
== END 2022-05-12 19:42 | disposition home or self-care (01) ==
LOC: ER 14:59
DX: R51.9 Headache, unspecified (principal); H53.8 Other visual disturbances; F41.9 Anxiety disorder, unspecified; Z88.5 Allergy status to narcotic agent
CPT/HCPCS: 36415; 70450; 80048; 81003; 81025; 83735; 85025; 93005; 99284

== ENCOUNTER 2022-09-04 07:22 | Emergency (ER) | payer BC ==
--- OUTSIDE RECORDS SUMMARY | 2022-09-04 07:25 | XMS REPORT | Continuity of Care Document ---
:[address] [facility] t Address [address] [facility] [place] [address] Care Team Providers Name Role Phone Shin Camacho MD Primary Care Physician [phone] Doctor Unassigned, [place] Attending Clinician Unavailable JAYLEEN MUJICA Attending Clinician Unavailable CONSTANCE RETANA Attending Clinician Unavailable Shin Camacho MD Attending Clinician SHIN CAMACHO Attending Clinician Unavailable Payers Payer Name Policy Type Policy Number Effective Date Expiration Date S ource Problems Condition Condition Condition Status Onset Resolution Last Treating Co mments Source Name Details Category Date Date Treatment Clinician Date No known No known Disease Unive rs active active ity of problems problems [facility] [place] [facility] Allergies, Adverse Reactions, Alerts Allergy Allergy Status Severity Reaction(s) Onset Inactive Treating Comm ents Source Name Type Date Date Clinician Morphine Propensi Active Shortness of 2017-03 Univers ty to Breath 1-14 ity of adverse 00:00: [place] reaction [address] [place] [address] MORPHINE DRUG Active SOB 2017-03 Univers INGREDI 1-14 ity of 00:00: [address] Social History Social Habit Start Date Stop Date Quantity Comments Source Alcohol intake 2019-06-22 2019-06-22 Current University of 00:00:00 00:00:00 non-drinker of [facility] alcohol ([facility]) Branch Tobacco use and 2016-12-15 2016-12-15 Smokeless tobacco Un iversity of exposure 00:00:00 00:00:00 non-user [facility] Sex Assigned At 2000 2000 Universit y of 00:00:00 00:00:00 [facility] [place] [facility] Smoking Status Start Date Stop Date Source Never smoked tobacco [facility] Medications Ordered Filled Start Stop Current Ordering Indication Dosage Frequency Signature Comments Components Source Medication Medication Date Date Medication? Clinician (SIG) Name Name medroxyPROG 2020-0 Yes 150mg 150 mg by [...] 3-13 Intramuscu ity o f 150 mg/mL 11:17: lar route Adriano as syringe 51 every 3 Medical (three) Branch months. escitalopra 2020-0 Yes [id number] 5mg Take 1 Univers m oxalate 5 3-13 tablet by ity of mg tablet 00:00: mouth [place] 00 daily. Medical Branch escitalopra 2020-0 Yes [id number] 5mg Take 1 Univers m oxalate 5 3-13 tablet by ity of mg tablet 00:00: mouth [place] 00 daily. Medical Branch escitalopra 2020-0 Yes [id number] 5mg Take 1 Univers m oxalate 5 3-13 tablet by ity of mg tablet 00:00: mouth [place] 00 daily. Medical Branch escitalopra 2020-0 Yes [id number] 5mg Take 1 Univers m oxalate 5 3-13 tablet by ity of mg tablet 00:00: mouth [place] 00 daily. Medical Branch ESCITALOPRA 2020-0 Yes [id number] 10mg TAKE 1 Univers M OXALATE 2-28 TABLET BY ity o f 10 mg 00:00: MOUTH [place] tablet 00 DAILY Medical Branch ESCITALOPRA 2020-0 Yes [id number] 10mg TAKE 1 Univers M OXALATE 2-28 TABLET BY ity o f 10 mg 00:00: MOUTH [place] tablet 00 DAILY Medical Branch ESCITALOPRA 2020-0 Yes [id number] 10mg TAKE 1 Univers M OXALATE 2-28 TABLET BY ity o f 10 mg 00:00: MOUTH [place] tablet 00 DAILY Medical Branch ESCITALOPRA 2020- No [id number] 10mg TAKE 1 Univers M OXALATE 05-13 TABLET BY ity of 10 mg 00:00: 00:00 MOUTH [place] tablet 00 :00 DAILY Medical Branch ESCITALOPRA 2020- No [id number] 10mg TAKE 1 Univers M OXALATE 05-13 TABLET BY ity of 10 mg 00:00: 00:00 MOUTH [place] tablet 00 :00 DAILY Medical Branch Nitrofurant Yes [id number] 100mg Take 1 Univers oin&Nit. 7-26 capsule by ity o f [place] 00:[place]: [place] 100 mg 00 (two) Medical capsule times Branch daily. Nitrofurant Yes [id number] 100mg Take 1 Univers oin&Nit. 7-26 capsule by ity o f [place] 00:[place]: mouth [place] 100 mg 00 (two) Medical capsule times Branch daily. Nitrofurant Yes [id number] 100mg Take 1 Univers oin&Nit. 7-26 capsule by ity o f [place] 00:00: mouth [place] 100 mg 00 (two) Medical capsule times Branch daily. Nitrofurant Yes [id number] 100mg Take 1 Univers oin&Nit. 7-26 capsule by ity o f [place] 00:[place]: mouth [place] 100 mg 00 (two) Medical capsule times Branch daily. Nitrofurant Yes [id number] 100mg Take 1 Univers oin&Nit. 7-26 capsule by ity o f [place] 00:[place]: mouth [place] 100 mg 00 (two) Medical capsule times Branch daily. Nitrofurant Yes [id number] 100mg Take 1 Univers oin&Nit. 7-26 capsule by ity o f [place] 00:[place]: mouth [place] 100 mg 00 (two) Medical capsule times Branch daily. Nitrofurant Yes [id number] 100mg Take 1 Univers oin&Nit. 7-26 capsule by ity o f [place] 00:[place]: mouth [place] 100 mg 00 (two) Medical capsule times Branch daily. Nitrofurant 2020- No [id number] 100mg Take 1 Univers oin&Nit. 7-26 - capsule by ity of [place] 00:00: 00:00 mouth 2 [place] as 100 mg 00 :00 (two) Medical capsule times Branch daily. Nitrofurant 2018- 2020- No [id number] 100mg Take 1 Univers oin&Nit. 10-08 capsule by ity of [place]ryst 00:00: 00:00 mouth 2 [place] as 100 mg 00 :00 (two) Medical capsule times Branch daily. cephALEXin 2018- Yes [id number] 500mg Take 1 Univers 500 mg 7-24 capsule by ity of capsule 00:00: mouth 2 [place] (two) Medical times Branch daily. cephALEXin 2018-0 Yes [id number] 500mg Take 1 Univers 500 mg 7-24 capsule by ity of capsule 00:00: mouth 2 [place] (two) Medical times Branch daily. cephALEXin 2018-0 Yes [id number] 500mg Take 1 Univers 500 mg 7-24 capsule by ity of capsule 00:00: mouth [address] [place] [address] (two) Medical times Branch daily. cephALEXin Yes [id number] 500mg Take 1 Univers 500 mg 7-24 capsule by ity of capsule 00:00: mouth [place] (two) Medical times Branch daily. cephALEXin 0 Yes [id number] 500mg Take 1 Univers 500 mg 7-24 capsule by ity of capsule 00:00: mouth [place] (two) Medical times Branch daily. cephALEXin 2018-0 Yes [id number] 500mg Take 1 Univers 500 mg 7-24 capsule by ity of capsule 00:00: mouth [place] (two) Medical times Branch daily. cephALEXin 2018-0 Yes [id number] 500mg Take 1 Univers 500 mg 7-24 capsule by ity of capsule 00:00: mouth 2 [place] (two) Medical times Branch daily. cephALEXin 0 2020- No [id number] 500mg Take 1 Univers 500 mg 7-24 - capsule by ity of capsule 00:00: 00:00 mouth 2 [place] 00 :00 (two) Medical times Branch daily. cephALEXin 0 2020- No [id number] 500mg Take 1 Univers 500 mg 7-24 - capsule by ity of capsule 00:00: 00:00 mouth 2 [place] 00 :00 (two) Medical times Branch daily. escitalopra 2018-0 Yes [id number] 10mg Take 1 Univers m oxalate 2-06 tablet by ity o f 10 mg 00:00: mouth [place] tablet 00 daily. [facility] Branch escitalopra Yes [id number] 10mg Take 1 Univers m oxalate 2-06 tablet by ity o f 10 mg 00:00: mouth [place] tablet 00 daily. [facility] escitalopra Yes [id number] 10mg Take 1 Univers m oxalate 2-06 tablet by ity o f 10 mg 00:00: mouth [place] tablet 00 daily. [facility] Branch escitalopra Yes [id number] 10mg Take 1 Univers m oxalate 2-06 tablet by ity o f 10 mg 00:00: mouth [place] tablet 00 daily. [facility] escitalopra 2020- No [id number] 10mg Take 1 Univers m oxalate 2-06 -28 tablet by ity of 10 mg 00:00: 00:00 mouth [place] tablet 00 :00 daily. [facility] Immunizations Ordered Filled Immunization Date Status Comments [facility] e Immunization Name Name TDAP 2018-07-31 Completed University of 00:00:00 [facility] Tdap 2018-07-31 Completed University of 00:00:00 [facility] [place] [facility] Tdap 2018-07-31 Completed University of 00:00:00 [facility] [place] [facility] Tdap 2018-07-31 Completed University of 00:00:00 [facility] [place] [facility] Tdap 2018-07-31 Completed University of 00:00:00 [facility] Tdap 2018-07-31 Completed University of 00:00:00 [facility] Tdap 2018-07-31 Completed University of 00:00:00 [facility] Tdap 2018-07-31 Completed University of 00:00:00 [facility] [place] [facility] Tdap 2018-07-31 Completed University of 00:00:00 [facility] [place] [facility] Tdap 2018-07-31 Completed University of 00:00:00 [facility] TDAP 2018-07-31 Completed University of 00:00:00 [facility] Influenza Virus 2016-12-15 Completed Universit y of Vaccine Quad IM 3+ 00:00:00 [facility] Influenza Virus 2016-12-15 Completed Universit y of Vaccine Quad IM 3+ 00:00:00 [facility] Influenza Virus 2016-12-15 Completed Universit y of Vaccine Quad IM 3+ 00:00:00 [facility] Influenza Virus 2016-12-15 Completed Universit y of Vaccine Quad IM 3+ 00:00:00 [facility] Branch Influenza Virus 2016-12-15 Completed Universit y of Vaccine Quad IM 3+ 00:00:00 [facility] Branch Influenza Virus 2016-12-15 Completed Universit y of Vaccine Quad IM 3+ 00:00:00 [facility] Branch Influenza Virus 2016-12-15 Completed Universit y of Vaccine Quad IM 3+ 00:00:00 [facility] Branch Influenza Virus 2016-12-15 Completed Universit y of Vaccine Quad IM 3+ 00:00:00 [facility] Branch Influenza Virus 2016-12-15 Completed Universit y of Vaccine Quad IM 3+ 00:00:00 [facility] Branch Influenza Virus 2016-12-15 Completed Universit y of Vaccine Quad IM 3+ 00:00:00 [facility] Influenza Virus 2016-12-15 Completed Universit y of Vaccine Quad IM 3+ 00:00:00 [facility] Vital Signs Vital Name Observation Time Observation Value Comments Source Systolic blood 2019-05-27 16:08:00 110 mm[Hg] Univer sity of pressure [facility] Diastolic blood 2019-05-27 16:08:00 76 mm[Hg] Unive rsity of pressure [facility] Heart rate 2019-05-27 16:08:00 87 /min Universi ty of [facility] Body temperature 2019-05-27 16:08:00 36.56 Joy Univ ersity [facility] Body weight 2019-05-27 16:08:00 65.862 kg Universi ty of [facility] Oxygen saturation in 2019-05-27 16:08:00 98 /min University of Arterial blood by [facility] Pulse oximetry Branch Systolic blood 2019-05-27 16:08:00 110 mm[Hg] Univer sity of pressure [facility] Diastolic blood 2019-05-27 16:08:00 76 mm[Hg] Unive rsity of pressure [facility] Heart rate 2019-05-27 16:08:00 87 /min Universi ty of [facility] Body temperature 2019-05-27 16:08:00 36.56 Joy Univ ersity of [facility] Body weight 2019-05-27 16:08:00 65.862 kg Universi ty of [facility] Oxygen saturation in 2019-05-27 16:08:00 98 /min University of Arterial blood by [facility] Pulse oximetry Branch Procedures Procedure Date / Time Performed Performing Clinician Clemencia shepard EXTERNAL PROVIDER 2022-05-22 06:01:00 Doctor Unassigned, No Univ ersity of [place] RECORDS Name Medical Branch EXTERNAL PROVIDER 2020-04-25 06:01:00 Doctor Unassigned, No Univ ersity of [place] RECORDS Name Medical Branch ASSIGNMENT OF BENEFITS 2019-05-27 16:00:48 Doctor Unassigned, No [facility] Name Medical Branch EXTERNAL PROVIDER 2019-05-18 06:01:00 Doctor Unassigned, No Univ ersity of [place] RECORDS Name Medical Branch EXTERNAL PROVIDER 2018-12-03 05:01:00 Doctor Unassigned, No Univ ersity of [place] RECORDS Name Medical Branch Encounters Start End Encounter Admission Attending Care Care Encounter Source Date/Time Date/Time Type Type Clinicians Facility Department ID 2022-05-22 2022-05-22 Orders Doctor MAC 1.2.840.114 [id number] Univers 00:00:00 00:00:00 Only Unassigned, FINESSE [id number] ity of [facility] [id number] Adriano as [phone] [place] [id number] Branch 2020-04-25 2020-04-25 Orders Doctor MAC [id number] Univers 00:00:00 00:00:00 Only Unassigned, FINESSE [id number] ity of [place] [facility] [id number] Adriano as [phone] [address] 2020-04-24 2020-04-24 Outpatient R SIL [facility] [id number] Univers 13:00:00 13:00:00 JAYLEEN harry [facility] 2019-06-22 2019-06-22 Outpatient Kameron RETANA [facility] [id number] Univers 19:40:00 19:40:00 CONSTANCE harry [facility] 2019-05-27 2019-05-27 Office Doug VACHRISTINE [id number] 11:00:00 11:15:00 Visit [facility] [id number] Fredo Carrero [id number] Professio [phone] [address]al [address] 2019-05-27 2019-05-27 Office [facility] [id number] Univers 11:00:00 11:15:00 Visit [facility] [id number] it y of [place] [id number] Adriano as Professio [phone] [address] Office [facility] One 2019-05-27 2019-05-27 Outpatient R [facility] [id number] Univers 11:00:00 11:00:[address] [facility] 2019-05-27 2019-05-27 Orders Doctor ESTEFANIA 1.2.840.114 [id number] Univers 00:00:00 00:00:00 Only Unassigned, FINESSE [id number] ity of [facility] [id number] Adriano as [phone] [address] 2019-05-18 2019-05-18 Orders Doctor ESTEFANIA [id number] Univers 00:00:00 00:00:00 Only Unassigned, FINESSE [id number] ity of [facility] [id number] Adriano as [phone] [address] 2019-05-13 2019-05-13 Outpatient R [facility] [id number] Univers 13:15:00 13:15:[address] [facility] 2019-05-11 2019-05-11 [facility] [id number] Univers 00:00:00 00:00:00 [facility] [id number] it y of [place] [id number] Adriano as Professio [phone] [address] Office [address] [facility] 2018-12-03 2018-12-03 Orders Doctor ESTEFANIA 1.2.840.114 [id number] Univers 00:00:00 00:00:00 Only Unassigned, FIENSSE [id number] ity of [facility] [id number] Adriano as [phone] [address] 2018-11-01 2018-11-01 Telephone [facility] [id number] Univers 00:00:00 00:00:00 [facility] [id number] it y of [place] [id number] Adriano as Professio [phone] [address] Office [address] 2018-10-08 2018-10-08 Telephone Doug [facility] [id number] Univers 00:00:00 00:00:00 [facility] [id number] it y of [place] [id number] Adriano as Professio [phone] [address] Office [address] One Results This patient has no known results.
[2022-09-04] MEDS ORDERED: PROMETHAZINE INJ 25 MG/ML AMP ONE (07:56)
[2022-09-04 07:58] LABS: Specific Gravity 1.026 (1.005-1.030); Urine Bacteria None Seen /HPF (<20); Urine Bilirubin NEGATIVE (Negative); Urine Blood Negative (Negative); Urine Clarity Extremely Turbid (Clear); Urine Color Yellow (Yellow); Urine Glucose NEGATIVE (Negative); Urine Mucus Slight /HPF (None Seen); Urine Protein TRACE (Negative); Urine RBC <5 /HPF (None Seen); Urine Urobilinogen Normal (Normal); Urine pH 5.5 (5.0-7.0)
[2022-09-04] MEDS ORDERED: MEPERIDINE HCL 25 MG/ML SYR ONE (07:58)
[2022-09-04 08:08] LABS: Absolute Lymphocytes (CBC) 2.3 K/uL (0.7-4.9); Hematocrit 43.1 % (36.0-45.0); Lymphocytes % 42.4 % (15.3-44.8); MCV 89.8 fL (80-100); MPV 10.1 fL (7.6-11.3)
[2022-09-04 08:22] LABS: Albumin 4.1 g/dL (3.4-5.0); Bilirubin Total 0.6 mg/dL (0.2-1.0); Protein, Total 7.5 g/dL (6.4-8.2)
--- NOTE | 2022-09-04 08:22 | RAD REPORT ---
EXAM DESCRIPTION: CT - Abdomen Pelvis W Contrast - 09/04/2022 8:10 am CLINICAL HISTORY: Abdominal pain COMPARISON: 2019 TECHNIQUE: Computed axial tomography of the abdomen pelvis was obtained. 100 cc Isovue-300 was admin istered intravenously. Oral contrast was not requested which limits evaluation of bowel and appendix All CT scans are performed using dose optimization technique as appropriate and may include automated exposure control or mA/KV adjustment according to patient size. FINDINGS: The liver, spleen, pancreas, adrenal and kidneys appear unremarkable. There is no evidence of diverticulitis. Appendix is not seen. No stranding within right lower quadrant. No adnexal mass Fluid is present within several nondilated loops of ileum. IMPRESSION: Fluid is present within several nondilated loops of ileum. This may indicate an enteriti s
[2022-09-04] MEDS ORDERED: NA CHLORIDE 0.9% 500 ML ONE (08:32)
[2022-09-04] MEDS ORDERED: FAMOTIDINE 20 MG/2 ML VIAL IV ONE (08:32)
--- NOTE | 2022-09-04 10:23 | EDPHYS ---
Physician Documentation [facility] Name: Jhon Ackerman Age: 22 yrs Sex: Female : 2000 Arrival Date: 09/04/2022 Time: : Bed 6 Private MD: ED Physician Leobardo Kwong HPI: 09/04 10:30 This 22 yrs old Female presents to ER via Ambulatory with complaints of Abdominal Pain. kdr 10:30 Patient states she began to have epigastric pain about 20 minutes prior to arrival. She kdr reported that the pain woke her from sleep. She is not nauseated or vomiting or having any diarrhea. She appears to be mildly to moderately uncomfortable. Vital signs are stable. She has not had anything like this before. She denies fever or any other precipitating events. She is not toxic appearing but does seem uncomfortable. Onset: The symptoms/episode began/occurred suddenly, just prior to arrival. Severity of symptoms: At their worst the symptoms were moderate severe just prior to arrival, in the emergency department the symptoms are unchanged. The patient has not experienced similar symptoms in the past. The patient has not recently seen a physician. Historical: - Allergies: 07:28 Morphine; cm10 - PMHx: 07:28 Anxiety; Depression; cm10 - Immunization history:: Adult Immunizations unknown. - Social history:: Smoking status: Patient/guardian denies using tobacco. ROS: 10:30 Constitutional: Negative for fever, chills, and weight loss, Eyes: Negative for injury, kdr pain, redness, and discharge, ENT: Negative for injury, pain, and discharge, Neck: Negative for injury, pain, and swelling, Cardiovascular: Negative for chest pain, palpitations, and edema, Respiratory: Negative for shortness of breath, cough, wheezing, and pleuritic chest pain, Back: Negative for injury and pain, : Negative for injury, bleeding, discharge, and swelling, MS/Extremity: Negative for injury and deformity, Skin: Negative for injury, rash, and discoloration, Neuro: Negative for headache, weakness, numbness, tingling, and seizure activity. Psych: Negative for depression, anxiety, suicide ideation, homicidal ideation, and hallucinations, Allergy/Immunology: Negative for hives, rash, and allergies, Endocrine: Negative for neck swelling, polydipsia, polyuria, polyphagia, and marked weight changes, Hematologic/Lymphatic: Negative for swollen nodes, abnormal bleeding, and unusual bruising. 10:30 Abdomen/GI: Positive for abdominal pain, nausea, Negative for vomiting, diarrhea, constipation, abdominal cramps, abdominal distension, anorexia, dysphagia, hematemesis, black/tarry stool, rectal pain, rectal bleeding. Exam: 10:30 Constitutional: This is a well developed, well nourished patient who is awake, alert, kdr and in no acute distress. Head/Face: Normocephalic, atraumatic. Eyes: Pupils equal round and reactive to light, extra-ocular motions intact. Lids and lashes normal. Conjunctiva and sclera are non-icteric and not injected. Cornea within normal limits. Periorbital areas with no swelling, redness, or edema. Neck: Trachea midline, no thyromegaly or masses palpated, and no cervical lymphadenopathy. Supple, full range of motion without nuchal rigidity, or vertebral point tenderness. No Meningismus. Chest/axilla: Normal chest wall appearance and motion. Nontender with no deformity. No lesions are appreciated. Cardiovascular: Regular rate and rhythm with a normal S1 and S2. No gallops, murmurs, or rubs. Normal PMI, no JVD. No pulse deficits. Respiratory: Lungs have equal breath sounds bilaterally, clear to auscultation and percussion. No rales, rhonchi or wheezes noted. No increased work of breathing, no retractions or nasal flaring. Back: No spinal tenderness. No costovertebral tenderness. Full range of motion. Skin: Warm, dry with normal turgor. Normal color with no rashes, no lesions, and no evidence of cellulitis. MS/ Extremity: Pulses equal, no cyanosis. Neurovascular intact. Full, normal range of motion. Neuro: Awake and alert, GCS 15, oriented to person, place, time, and situation. Cranial nerves II-XII grossly intact. Motor strength 5/5 in all extremities. Sensory grossly intact. Cerebellar exam normal. Normal gait. Psych: Awake, alert, with orientation to person, place and time. Behavior, mood, and affect are within normal limits. 10:30 Abdomen/GI: Inspection: abdomen appears normal, Bowel sounds: normal, Palpation: soft, mild abdominal tenderness, moderate abdominal tenderness, in the epigastric area. Vital Signs: 07:27 BP 134 / 77; Pulse 75; Resp 16; Temp 98.2(O); Pulse Ox 100% on R/A; Weight 66.68 kg; cm10 Height 5 ft. 7 in. ; Pain 7/10; 08:00 BP 116 / 72; Pulse 87; Resp 18; Pulse Ox 98% on R/A; Pain 9/10; ld1 10:12 BP 112 / 63; Pulse 50; Resp 18; Pulse Ox 99% on R/A; ld1 07:27 Body Mass Index 23.02 (66.68 kg, 170.18 cm) cm10 07:27 Pain Scale: Adult cm10 08:00 Pain Scale: Adult ld1 MDM: 10:23 Patient medically screened. kdr 10:30 Data reviewed: vital signs, nurses notes, lab test result(s), radiologic studies. kdr 09/04 07:36 Order name: CBC with Diff; Complete Time: 10:32 ld1 09/04 07:36 Order name: CMP; Complete Time: 08:51 ld1 09/04 07:36 Order name: Lipase; Complete Time: 08:51 ld1 09/04 07:36 Order name: Urinalysis w/ reflexes; Complete Time: 08:51 ld1 09/04 10:30 Order name: CBC Smear Scan; Complete Time: 10:32 EDMS 09/04 07:59 Order name: CT Abd/Pelvis - IV Contrast Only; Complete Time: 08:51 kdr 09/04 07:36 Order name: IV Saline Lock; Complete Time: 07:43 ld1 09/04 07:36 Order name: Labs collected and sent; Complete Time: 07:43 ld1 Administered Medications: 07:56 Drug: Meperidine IVP 25 mg Route: IVP; Site: right antecubital; ld1 07:56 Drug: Promethazine IVP 12.5 mg Route: IVP; Site: right antecubital; ld1 08:27 Drug: NS 0.9% IV 500 ml Route: IV; Rate: bolus; Site: right antecubital; ld1 08:27 Drug: Famotidine IVP 20 mg Route: IVP; Site: right antecubital; ld1 Disposition Summary: 09/04/22 10:23 Discharge Ordered Location: Home kdr Problem: new kdr Symptoms: have improved kdr Condition: Stable kdr Diagnosis - Upper abdominal pain, unspecified kdr - Other viral enteritis kdr Followup: kdr - With: Private Physician - When: 2 - 3 days - Reason: If symptoms return, Further diagnostic work-up, Recheck today's complaints, Continuance of care, Re-evaluation by your physician Discharge Instructions: - Discharge Summary Sheet kdr - Abdominal Pain, Adult, [id number] kdr Forms: - Medication Reconciliation Form kdr - Thank You Letter kdr Prescriptions: - Zofran 4 mg Oral Tablet - take 1 tablet by ORAL route every 4-6 hours As needed; 20 tablet; Refills: 0, kdr Product Selection Permitted - Pepcid 20 mg Oral Tablet - take 1 tablet by ORAL route once daily for 10 days; 10 tablet; Refills: 0, kdr Product Selection Permitted Signatures: Dispatcher [employer] Leobardo Bender MD MD kdr Mer Del Real RN RN ld1 Marie Blackman RN RN cm10
--- NOTE | 2022-09-04 10:23 | ER ---
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 no nausea, vomiting or diarrhea. Coronavirus screen: Vaccine status: Patient reports being unvaccinated. Client denies travel out of the [place] in the last 14 days. Ebola Screen: No symptoms or risks identified at this time. Initial Sepsis Screen: Does the patient meet any 2 criteria? No. Patient's initial sepsis screen is negative. Does the patient have a suspected source of infection? No. Patient's initial sepsis screen is negative. Risk Assessment: Do you want to hurt yourself or someone else? Patient reports no desire to harm self or others. Onset of symptoms was September 04, 2022. 07:27 Method Of Arrival: Ambulatory cm10 07:27 Acuity: HAIR 3 cm10 Historical: - Allergies: 07:28 Morphine; cm10 - PMHx: 07:28 Anxiety; Depression; cm10 - Immunization history:: Adult Immunizations unknown. - Social history:: Smoking status: Patient/guardian denies using tobacco. Screenin:00 [facility] ED Fall Risk Assessment (Adult) History of falling in the last 3 months, ld1 including since admission No falls in past 3 months (0 pts). Abuse screen: Denies threats or abuse. Denies injuries from another. Nutritional screening: No deficits noted. Tuberculosis screening: No symptoms or risk factors identified. Assessment: 07:56 Reassessment: Verbal order from Dr. Kwong - 25mg IVP Demerol \T\ 12.5mg Phenergan. ld1 08:00 General: Appears in no apparent distress. comfortable, Behavior is calm, cooperative, ld1 appropriate for age. Pain: Complains of pain in epigastric area Pain does not radiate. Pain currently is 8 out of 10 on a pain scale. Quality of pain is described as throbbing, Pain began suddenly, Is continuous. Neuro: Level of Consciousness is awake, alert, obeys commands, Oriented to person, place, time, situation. Cardiovascular: Capillary refill < 3 seconds Patient's skin is warm and dry. Respiratory: Airway is patent Respiratory effort is even, unlabored. GI: Abdomen is flat, non-distended, Bowel sounds present X 4 quads. Abd is soft Abdomen is tender to palpation in epigastric area Reports upper abdominal pain. : No signs and/or symptoms were reported regarding the genitourinary system. EENT: No signs and/or symptoms were reported regarding the EENT system. Derm: No signs and/or symptoms reported regarding the dermatologic system. Musculoskeletal: No signs and/or symptoms reported regarding the musculoskeletal system. 10:12 Reassessment: Patient appears in no apparent distress at this time. No changes from ld1 previously documented assessment. Patient and/or family updated on plan of care and expected duration. Pain level reassessed. Patient is alert, oriented x 3, equal unlabored respirations, skin warm/dry/pink. Vital Signs: 07:27 BP 134 / 77; Pulse 75; Resp 16; Temp 98.2(O); Pulse Ox 100% on R/A; Weight 66.68 kg; cm10 Height 5 ft. 7 in. ; Pain 7/10; 08:00 BP 116 / 72; Pulse 87; Resp 18; Pulse Ox 98% on R/A; Pain 9/10; ld1 10:12 BP 112 / 63; Pulse 50; Resp 18; Pulse Ox 99% on R/A; ld1 07:27 Body Mass Index 23.02 (66.68 kg, 170.18 cm) cm10 07:27 Pain Scale: Adult cm10 08:00 Pain Scale: Adult ld1 ED Course: 07:22 Patient arrived in ED. rg4 07:28 Triage completed. cm10 07:29 Leobardo Kwong MD is Attending Physician. kdr 07:29 Arm band placed on Patient placed in an exam room, on a stretcher. cm10 07:35 Mer Del Real RN is Primary Nurse. ld1 07:43 Urinalysis w/ reflexes Sent. ld1 07:43 Inserted saline lock: 20 gauge in right antecubital area, using aseptic technique. ld1 Blood collected. 08:00 Patient has correct armband on for positive identification. Placed in gown. Bed in low ld1 position. Call light in reach. Side rails up X2. vehicle monitor technician on. Pulse ox on. NIBP on. Door closed. Noise minimized. Warm blanket given. 08:00 No provider procedures requiring assistance completed. ld1 08:12 CT Abd/Pelvis - IV Contrast Only In Process Unspecified. EDMS 10:33 IV discontinued, intact, bleeding controlled, No redness/swelling at site. ld1 Administered Medications: 07:56 Drug: Meperidine IVP 25 mg Route: IVP; Site: right antecubital; ld1 07:56 Drug: Promethazine IVP 12.5 mg Route: IVP; Site: right antecubital; ld1 08:27 Drug: NS 0.9% IV 500 ml Route: IV; Rate: bolus; Site: right antecubital; ld1 08:27 Drug: Famotidine IVP 20 mg Route: IVP; Site: right antecubital; ld1 Medication: 08:00 VIS not applicable for this client. ld1 Outcome: 10:23 Discharge ordered by . kdr 10:33 Discharged to home ambulatory. ld1 10:33 Condition: stable 10:33 Condition: good 10:33 Discharge instructions given to patient, Instructed on discharge instructions, follow up and referral plans. medication usage, Demonstrated understanding of instructions, follow-up care, medications, Prescriptions given X 2. 10:33 Patient left the ED. ld1 Signatures: Dispatcher [employer] EDMS Leobardo Kwong MD MD kdr Garcia, Rubi rg4 Mer Del Real RN RN ld1 Marie Blackman RN RN cm10
[2022-09-04 10:30] LABS: Blood Morphology Comment NOT SEEN (NOT SEEN); Platelet Estimate ADEQ; White Blood Cell Scan OK (OK)
[2022-09-04 10:55] VITALS: TEMP 98.2
[2022-09-04 10:58] VITALS: BP 112/63; O2SAT 99
== END 2022-09-04 10:33 | disposition home or self-care (01) ==
LOC: ER 07:22
DX: A08.39 Other viral enteritis (principal); Z88.5 Allergy status to narcotic agent
CPT/HCPCS: 85025; 81001; 36415; 83690; 80053; 74177; 96375; 96374; 99285; Q9967; J2550; J2175; J7040